=== PATIENT | female | born 1975 | race Caucasian/White ===

== ENCOUNTER 2016-04-11 11:59 | Emergency (ER) | payer OTHER ==
[2016-04-11] MEDS ORDERED: ASPIRIN 81 MG CHEW TABLET As Ordered ONE (12:12)
[2016-04-11 12:30] LABS: BASO # 0.1 K/mm3 (0.0-0.2); BASO % 0.9 % (0.0-1.0); EOS # 0.2 K/mm3 (0.0-0.50); EOS % 3.2 % (0.0-3.0); LARGE UNSTAINED CELL # 0.2 K/mm3 (0.0-0.4); LARGE UNSTAINED CELL % 3.3 % (0.0-4.0); LYMPH # 1.2 K/mm3 (1.5-4.5); LYMPH % 17.2 % (24.0-44.0); MEAN CORPUSCULAR HEMOGLOBIN 30.6 pg (27.0-33.0); MEAN CORPUSCULAR HGB CONC 33.4 g/dl (32.0-36.5); MEAN CORPUSCULAR VOLUME 91.7 fl (80.0-96.0); MONO # 0.3 K/mm3 (0.0-0.8); MONO % 5.1 % (0.0-5.0); NEUTROPHILS # 4.7 K/mm3 (1.8-7.7); NEUTROPHILS % 70.4 % (36.0-66.0); PLATELET COUNT, AUTOMATED 180 k/mm3 (150-450); RED CELL DISTRIBUTION WIDTH 14.2 % (11.5-14.5); WHITE BLOOD COUNT 6.7 K/mm3 (4.0-10.0)
--- NOTE | 2016-04-11 12:32 | REP ---
Chest two views HISTORY: Chest pain Comparison: 08/01/2014 The lungs are clear. The heart is normal in size. The pulmonary vasculature is normal in appearance. The bony structure is intact. IMPRESSION: No acute disease. Signed by Filipe Daugherty MD 04/11/2016 12:24 P
[2016-04-11 12:50] LABS: ANION GAP 9 MEQ/L (8-16); BLOOD UREA NITROGEN 4 MG/DL (7-18); CALCIUM LEVEL 9.5 MG/DL (8.5-10.1); CARBON DIOXIDE LEVEL 28 MEQ/L (21-32); CHLORIDE LEVEL 102 MEQ/L (98-107); CREATININE FOR GFR 0.79 MG/DL (0.55-1.02); GLOMERULAR FILTRATION RATE > 60.0 (>58); GLUCOSE, FASTING 94 MG/DL (70-105); POTASSIUM SERUM 4.3 MEQ/L (3.5-5.1); SODIUM LEVEL 139 MEQ/L (136-145)
--- NOTE | 2016-04-11 13:03 | ECGEPIP ---
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
[2016-04-11] MEDS ORDERED: ISOVUE-370 76% 100ML VIAL (Q9967) As Ordered ONE (14:22)
--- NOTE | 2016-04-11 15:24 | REP ---
CTA chest 04/11/2016 Indication: Elevated D-dimer, chest pain Comparison: CTA chest 05/19/2014 Technique: Following dynamic IV contrast administration 75 ml Isovue 370 mg/ml, 3 mm spiral axial sections were performed through the chest. Coronal and sagittal reconstructed images were also created and provided for interpretation Thoracic aorta is without aneurysm or dissection. There are no pathologically enlarged mediastinal or hilar nodes. There is homogeneous opacification of the pulmonary arteries without filling defects or findings to suggest pulmonary artery emboli. Tiny biapical bullous changes are noted . Small amount of bibasilar dependent atelectasis/fibrotic scarring . Focal narrowing and/or shadowing artifact is seen of the right common carotid artery at the thoracic inlet on image 29 series 403 and on image 26 series 401 There are no lytic or blastic lesions of bone identified within the bony thorax. Visualized portions of the liver, spleen, pancreas gallbladder, adrenals within normal limits Impression : 1. No evidence of pulmonary embolus 2. Thoracic aorta without aneurysm or dissection. 3. No pathologically enlarged mediastinal or hilar nodes 4. Tiny biapical bullous changes. Small amount of bibasilar dependent atelectasis/fibrotic scarring Signed by Marlene Berry MD 04/11/2016 03:16 P
--- NOTE | 2016-04-11 16:25 | EDDOCDS ---
Nurse's Notes [facility] Name: Ara Tellez Age: 41 yrs Sex: Female : 1975 Arrival Date: 04/11/2016 Time: 11:59 Bed 15 Private MD: Nate Oneil OGME-1 Diagnosis: Chest pain, unspecified-Low probablility cardiac or pulmonary embolism Presentation: 04/11 12:16 Presenting complaint: Patient states: Intermittent chest pain x1 week approximately. jo3 Aspirin was not taken prior to arrival. Adult Sepsis Screening: The patient does not have new or worsening altered mentation. Patient's respiratory rate is less than 22. Systolic blood pressure is greater than 100. Patient has a qSOFA score of 0- Negative Sepsis Screen. Suicide/Homicide risk assessment- the patient denies having any suicidal and/or homicidal ideations and does not present with any other emotional, behavioral or mental health complaints. Status: Patient is not a greeter guest services or dependent. Transition of care: patient was not received from another setting of care. 12:16 Acuity: BEHZAD Level 2 jo3 12:16 Method Of Arrival: Walkin/Carried/Asstd jo3 Triage Assessment: 12:20 General: Appears in no apparent distress, comfortable, Behavior is appropriate for age, jo3 cooperative, pleasant. Pain: Denies pain. HIV screening NA for this visit Offered previously. Neurological: Level of Consciousness is awake, alert, Oriented to person, place, time. Neurological: Mid Level Game Designer are equal bilaterally Moves all extremities. Gait is steady, Speech is normal, Facial symmetry appears normal, Pupils are PERRLA, Reports numbness/tingling in left arm . Cardiovascular: Chest pain is denied. Cardiovascular: Chest pain Pt states that she has very brief episodes of sharp chest pain to left right and mid anterior chest. Pain is sometimes felt in her right scapular area but is never constant . Respiratory: Airway is patent Respiratory effort is even, unlabored. Derm: Skin is pink, warm & dry. 16:23 Cardiovascular: Chest pain is described as vague, is located in radiates Does not jmb radiate. episodes began 30 minutes prior to arrival. 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 omeprazole 40 mg Oral cpDR 1 cap once daily 2. Flonase 50 mcg/actuation Nasal spsn 2 sprays once daily 3. amlodipine 5 mg Oral tab 1 tab once daily - PMHx: GERD; Hypertension; - PSHx: none; - Social history: Smoking status: Patient uses tobacco products, heavy tobacco smoker. No barriers to communication noted, The patient speaks fluent Faroese, Speaks appropriately for age. - Family history: Not pertinent. - : The pt / caregiver states he / she is not on anticoagulants. Home medication list is obtained from the patient. - Exposure Risk Screening:: None identified. Screenin:21 Screening information is obtained from the patient. Fall risk: No risks identified. jmb Assistance ADL's: requires no assistance with activities of daily living. Abuse/DV Screen: The patient / caregiver reports he/she is: not in a situation that causes fear, pain or injury. Nutritional screening: No deficits noted. Advance Directives: Currently, there is no health care proxy. There is no active DNR order. There is no living will. There is no Power of Metal Cut Off Saw Tender. home support is adequate. Assessment: 12:25 Reassessment: Patient appears in no apparent distress at this time. See triage jo3 assessment . 13:00 General: Appears in no apparent distress, comfortable, Behavior is appropriate for age, jo3 cooperative, pleasant. Pain: Denies pain. Neurological: Level of Consciousness is awake, alert, Oriented to person, place, time, Reports numbness and tingling to left arm and hand . Cardiovascular: Rhythm is sinus rhythm No ectopy. Respiratory: Airway is patent Respiratory effort is even, unlabored. Derm: Skin is pink, warm & dry. 13:54 Reassessment: Patient appears in no apparent distress at this time. No changes noted jo3 from previous assessment status. Pt remains on stretcher at this time. Denies CP. Awaiting results. Aware of plan of care . 14:55 General: Appears in no apparent distress, comfortable, Behavior is appropriate for age, jo3 cooperative, pleasant. General: Returned from CT angio. Tolerated well. awaiting results for disposition. Aware of plan of care . Pain: Denies pain. 16:21 General: Patient instructed on discharge instructions. Patient asked if there were any b questions regarding discharge, patient stated no. IV discontinued per hospital policy. Patient signed discharge instructions. Patient discharged in stable condition. . Vital Signs: 12:00 BP 154 / 74; Pulse 122; Resp 18 S; Temp 97.4(O); Pulse Ox 100% on R/A; Weight 72.57 kg dd6 (R); Height 5 ft. 5 in. (165.10 cm) (R); 12:31 BP 145 / 89 (auto/); jo3 12:31 Pulse 78 MON; Pulse Ox 99% ; jo3 12:39 BP 135 / 71 (auto/); jo3 12:39 Pulse 74 MON; Pulse Ox 97% ; jo3 12:54 BP 133 / 68 (auto/); jo3 12:54 Pulse 70 MON; Pulse Ox 97% ; jo3 13:09 BP 136 / 72 (auto/); jo3 13:09 Pulse 70 MON; Pulse Ox 99% ; jo3 13:24 BP 132 / 71 (auto/); jo3 13:24 Pulse 66 MON; Pulse Ox 97% ; jo3 13:39 BP 123 / 66 (auto/); jo3 13:39 Pulse 66 MON; Pulse Ox 98% ; jo3 13:54 BP 127 / 62 (auto/); jo3 13:54 Pulse 68 MON; Pulse Ox 98% ; jo3 14:09 BP 119 / 60 (auto/); jo3 14:09 Pulse 68 MON; Pulse Ox 97% ; jo3 14:24 BP 141 / 92 (auto/); jo3 14:24 Pulse 66 MON; Pulse Ox 97% ; jo3 14:39 BP 148 / 84 (auto/); jo3 14:39 Pulse 90 MON; Pulse Ox 94% ; jo3 14:54 BP 136 / 62 (auto/); jmb 14:55 Pulse 64 MON; Pulse Ox 98% ; jmb 16:21 BP 139 / 62; Pulse 76; Resp 18; Temp 97.0(O); Pulse Ox 98% on R/A; Pain 0/10; jmb 12:00 Body Mass Index 26.63 (72.57 kg, 165.10 cm) dd6 Vitals: 12:00 Log In Time: April 11, 2016 at 11:58. RN notified that patient meets Red Flag dd6 criteria. ED Course: 12:00 Patient visited by Jj Acuña PCA. dd6 12:[address] [facility] [place]. dd6 12:00 Nate Oneil is Private Physician. dd6 12:00 Patient moved to Waiting dd6 12:02 Patient moved to 15 dy 12:09 [facility] le 12:11 EKG done. (by ED staff). Reviewed by Khushi TORRES. jlf 12:12 Pt greeted and oriented to ED. Patient advised of names of staff involved in care, jlf location of call nicole, wait times and NPO status. Patient has correct armband on for positive identification. Bed in low position. Side rails up X2. associate product manager on. Pulse ox on. NIBP on. 12:18 Patient visited by Khushi Pete FNP. le 12:18 Patient visited by Khushi Pete FNP. le 12:18 Triage Initiated jo3 12:51 COUNT INCLUDES THE [facility] Payment Agreement was scanned into [employer] and attached to record. lg 12:55 Patient visited by Christy Mays PCA. jlf 12:59 Chest, 2 View (pa\E\lat) Returned. EDMS 13:43 EKG-ADULT Returned. EDMS 13:59 Patient visited by Christy Mays PCA. jlf 13:59 Patient visited by Christelle Garcia,PHYLLIS. jo3 14:51 Patient visited by Christelle Garcia,PHYLLIS. jo3 15:23 Patient visited by Christelle Garcia,PHYLLIS. jo3 15:29 CT Chest Angio R/O PE Returned. EDMS 16:05 Nate Oneil is Referral Physician. le 16:21 The patient / caregiver is instructed regarding the plan of care and ED course. jmb 16:21 Discontinued lock intact, bleeding controlled, pressure dressing applied, No jmb redness/swelling at site. No procedures done that require assistance. Administered Medications: 12:13 Drug: Aspirin 324 mg [aspirin 81 mg chewable tablet (4 tabs)] Route: PO; js13 Order Results: Lab Order: Basic Metabolic Profile; SPEC'M 04/11/16 12:15 Test: GLUCOSE, FASTING; Value: 94; Range: 70-105; Units: MG/DL; Status: F Test: BLOOD UREA NITROGEN; Value: 4; Range: 7-18; Abnormal: Below low normal; Units: MG/DL; Status: F Test: CREATININE FOR GFR; Value: 0.79; Range: 0.55-1.02; Units: MG/DL; Status: F Test: GLOMERULAR FILTRATION RATE; Value: > 60.0; Range: >58; Status: F Test: SODIUM LEVEL; Value: 139; Range: 136-145; Units: MEQ/L; Status: F Test: POTASSIUM SERUM; Value: 4.3; Range: 3.5-5.1; Units: MEQ/L; Status: F Test: CHLORIDE LEVEL; Value: 102; Range: 98-107; Units: MEQ/L; Status: F Test: CARBON DIOXIDE LEVEL; Value: 28; Range: 21-32; Units: MEQ/L; Status: F Test: ANION GAP; Value: 9; Range: 8-16; Units: MEQ/L; Status: F Test: CALCIUM LEVEL; Value: 9.5; Range: 8.5-10.1; Units: MG/DL; Status: F Test Note: ; Units are mL/min/1.73 m2 Chronic Kidney Disease Staging per NKF: Stage I & II GFR >=60 Normal to Mildly Decreased Stage III GFR 30-59 Moderately Decreased Stage IV GFR 15-29 Severely Decreased Stage V GFR <15 Very Little GFR Left ESRD GFR <15 on MANAGER BUSINESS MANAGEMENT Lab Order: CBC with Diff; SPEC'M 04/11/16 12:15 Test: WHITE BLOOD COUNT; Value: 6.7; Range: 4.0-10.0; Units: K/mm3; Status: F Test: RED BLOOD COUNT; Value: 4.67; Range: 4.00-5.40; Units: M/mm3; Status: F Test: HEMOGLOBIN; Value: 14.3; Range: 12.0-16.0; Units: g/dl; Status: F Test: HEMATOCRIT; Value: 42.8; Range: 36.0-47.0; Units: %; Status: F Test: MEAN CORPUSCULAR VOLUME; Value: 91.7; Range: 80.0-96.0; Units: fl; Status: F Test: MEAN CORPUSCULAR HEMOGLOBIN; Value: 30.6; Range: 27.0-33.0; Units: pg; Status: F Test: MEAN CORPUSCULAR HGB CONC; Value: 33.4; Range: 32.0-36.5; Units: g/dl; Status: F Test: RED CELL DISTRIBUTION WIDTH; Value: 14.2; Range: 11.5-14.5; Units: %; Status: F Test: PLATELET COUNT, AUTOMATED; Value: 180; Range: 150-450; Units: k/mm3; Status: F Test: NEUTROPHILS %; Value: 70.4; Range: 36.0-66.0; Abnormal: Above high normal; Units: %; Status: F Test: LYMPH %; Value: 17.2; Range: 24.0-44.0; Abnormal: Below low normal; Units: %; Status: F Test: MONO %; Value: 5.1; Range: 0.0-5.0; Abnormal: Above high normal; Units: %; Status: F Test: EOS %; Value: 3.2; Range: 0.0-3.0; Abnormal: Above high normal; Units: %; Status: F Test: BASO %; Value: 0.9; Range: 0.0-1.0; Units: %; Status: F Test: LARGE UNSTAINED CELL %; Value: 3.3; Range: 0.0-4.0; Units: %; Status: F Test: NEUTROPHILS #; Value: 4.7; Range: 1.8-7.7; Units: K/mm3; Status: F Test: LYMPH #; Value: 1.2; Range: 1.5-4.5; Abnormal: Below low normal; Units: K/mm3; Status: F Test: MONO #; Value: 0.3; Range: 0.0-0.8; Units: K/mm3; Status: F Test: EOS #; Value: 0.2; Range: 0.0-0.50; Units: K/mm3; Status: F Test: BASO #; Value: 0.1; Range: 0.0-0.2; Units: K/mm3; Status: F Test: LARGE UNSTAINED CELL #; Value: 0.2; Range: 0.0-0.4; Units: K/mm3; Status: F Lab Order: Cardiac Injury Profile; SPEC'M 04/11/16 12:15 Test: CPK CREATINE PHOSPHOKINASE; Value: 67; Range: 26-192; Units: U/L; Status: F Test: CK-MB VALUE MASS; Value: 1.0; Range: 0.0-3.6; Units: NG/ML; Status: F Test: MB/CK RELATIVE INDEX; Value: 1.49; Range: < OR =4; Status: F Test Note: ; DIAGNOSIS CRITERIA MMB ng/ml Relative Index (RI) NON-AMI < or = 5 N/A REYNOLDS ZONE > 5 < or = 4 AMI > 5 > 4 Lab Order: D-Dimer Quant; SPEC'M 04/11/16 12:15 Test: D-DIMER QUANT; Value: 902.0; Range: <500; Abnormal: Above high normal; Units: ng/ml; Status: F Lab Order: Troponin; SPEC'M 04/11/16 12:15 Test: TROPONIN I; Value: < 0.02; Range: < 0.10; Units: NG/ML; Status: F Test Note: ; Troponin I Reference Interval for [employer] LOCI: 99th Percentile= 0.00-0.045 ng/ml Risk Stratification: <= 0.10 ng/ml Decreased Risk for Adverse Clinical Events. 0.10-1.50 ng/ml Increased Risk for Adverse Clinical Events. Evaluation of additional criterion and/or repeat testing in 2-6 hours is suggested to rule out myocardial damage. >= 1.50 ng/ml Indicative of Myocardial Injury. 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 The heart is normal in size. The pulmonary vasculature is; normal in appearance. The bony structure is intact.; ; IMPRESSION: No acute disease.; ; ; Signed by; Filipe Daugherty MD 04/11/2016 12:24 P; Radiology Order: CT Chest Angio R/O PE Test: CT Chest Angio R/O PE REASON FOR EXAMINATION: elev d-dimer;Chest Pain; CTA chest 04/11/2016; ; Indication: Elevated D-dimer, chest pain; ; Comparison: CTA chest 05/19/2014; ; Technique: Following dynamic IV contrast administration 75 ml Isovue 370 mg/ml, 3; mm spiral axial sections were performed through the chest. Coronal and sagittal; reconstructed images were also created and provided for interpretation; ; Thoracic aorta is without aneurysm or dissection. There are no pathologically; enlarged mediastinal or hilar nodes. There is homogeneous opacification of the; pulmonary arteries without filling defects or findings to suggest pulmonary; artery emboli.; ; Tiny biapical bullous changes are noted . Small amount of bibasilar dependent; atelectasis/fibrotic scarring . Focal narrowing and/or shadowing artifact is seen; of the right common carotid artery at the thoracic inlet on image 29 series 403; and on image 26 series 401; ; There are no lytic or blastic lesions of bone identified within the bony thorax.; Visualized portions of the liver, spleen, pancreas gallbladder, adrenals within; normal limits; ; Impression :; 1. No evidence of pulmonary embolus; 2. Thoracic aorta without aneurysm or dissection.; 3. No pathologically enlarged mediastinal or hilar nodes; 4. Tiny biapical bullous changes. Small amount of bibasilar dependent; atelectasis/fibrotic scarring; ; ; ; ; ; ; ; Signed by; Marlene Berry MD 04/11/2016 03:16 P; Outcome: 16:05 Discharge ordered by Provider. le 16:21 Discharge Assessment: Patient awake, alert and oriented x 3. No cognitive and/or jmb functional deficits noted. Patient verbalized understanding of disposition instructions. Patient awake and alert. obeys commands, Oriented to person, place and time. Patient verbalized understanding of disposition instructions. Patient has no functional deficits. patient administered narcotics - no. The following High Risk Discharge criteria are identified: None. Discharged to home ambulatory. Condition: stable. Discharge instructions given to patient, Instructed on discharge instructions, follow up and referral plans. Demonstrated understanding of instructions, Pt was receptive of discharge instructions/ teaching. No special radiology studies were completed. Property sent home with patient. 16:24 Patient left the ED. phylicia Signatures: Dispatcher [employer] EDMS Ronnell Dale, Reg Reg lg Declan Hawthorne, RN RN Christelle Mack,RN RN alina3 Khushi Pete, PLAYGROUND WORKER PLAYGROUND WORKER Jj Lima, RESIDENT SERVICE COORDINATOR RESIDENT SERVICE COORDINATOR dd6 Christelle Harris,RN RN jsChris BradleyRN RN Christy Coronado, RESIDENT SERVICE COORDINATOR RESIDENT SERVICE COORDINATOR jlf Corrections: (The following items were deleted from the chart) 12:26 12:20 Home Meds: unk BP med; jo3 joDianna MTDD
--- NOTE | 2016-04-11 16:25 | EDDOCDS ---
Physician Documentation [facility] Name: Monae Tellez Age: 41 yrs Sex: Female : 1975 Arrival Date: 04/11/2016 Time: 11:59 Bed 15 Private MD: Nate Oneil OGME-1 Disposition: 04/11 16:08 Critical Care: Critical care not applicable. le Disposition: 04/11/16 16:05 Discharged to Home/Self Care. Impression: Chest pain, unspecified - Low probablility cardiac or pulmonary embolism. - Condition is Stable. - Discharge Instructions: Nonspecific Chest Pain, Pain Without a Known Cause. - Medication Reconciliation, Local Pharmacy Hours form. - Follow up: Nate Oneil; When: Call to arrange an appointment; Reason: Recheck today's complaints, Continuance of care. - Problem is new. - Symptoms have improved. - Notes: Return to the ED for any further concerns Historical: - Allergies: no known allergies; - Home Meds: 1. omeprazole 40 mg Oral cpDR 1 cap once daily 2. Flonase 50 mcg/actuation Nasal spsn 2 sprays once daily 3. amlodipine 5 mg Oral tab 1 tab once daily - PMHx: GERD; Hypertension; - PSHx: none; - Social history: Smoking status: Patient uses tobacco products, heavy tobacco smoker. No barriers to communication noted, The patient speaks fluent Yak[place], Speaks appropriately for age. - Family history: Not pertinent. - : The pt / caregiver states he / she is not on anticoagulants. Home medication list is obtained from the patient. - Exposure Risk Screening:: None identified. 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 5 in. (165.10 cm) (R); 12:31 BP 145 / 89 (auto/); jo3 12:31 Pulse 78 MON; Pulse Ox 99% ; jo3 12:39 BP 135 / 71 (auto/); jo3 12:39 Pulse 74 MON; Pulse Ox 97% ; jo3 12:54 BP 133 / 68 (auto/); jo3 12:54 Pulse 70 MON; Pulse Ox 97% ; jo3 13:09 BP 136 / 72 (auto/); jo3 13:09 Pulse 70 MON; Pulse Ox 99% ; jo3 13:24 BP 132 / 71 (auto/); jo3 13:24 Pulse 66 MON; Pulse Ox 97% ; jo3 13:39 BP 123 / 66 (auto/); jo3 13:39 Pulse 66 MON; Pulse Ox 98% ; jo3 13:54 BP 127 / 62 (auto/); jo3 13:54 Pulse 68 MON; Pulse Ox 98% ; jo3 14:09 BP 119 / 60 (auto/); jo3 14:09 Pulse 68 MON; Pulse Ox 97% ; jo3 14:24 BP 141 / 92 (auto/); jo3 14:24 Pulse 66 MON; Pulse Ox 97% ; jo3 14:39 BP 148 / 84 (auto/); jo3 14:39 Pulse 90 MON; Pulse Ox 94% ; jo3 14:54 BP 136 / 62 (auto/); jmb 14:55 Pulse 64 MON; Pulse Ox 98% ; jmb 16:21 BP 139 / 62; Pulse 76; Resp 18; Temp 97.0(O); Pulse Ox 98% on R/A; Pain 0/10; jmb 12:00 Body Mass Index 26.63 (72.57 kg, 165.10 cm) dd6 MDM: 12:03 ECG WITH READING ER PHYS+CARDIAG ordered. EDMS 12:10 Aspirin Chewable Tablet 324 mg PO once ordered. le 12:10 Director Of Instruction/Pulse Ox/q 30 min VS ordered. le 12:10 IV Saline Lock ordered. le 12:10 Rhythm Strip to chart ordered. le 12:10 Undress patient appropriately for examination ordered. le 12:11 Basic Metabolic Profile Ordered. EDMS 12:11 CBC with Diff Ordered. EDMS 12:11 Cardiac Injury Profile Ordered. EDMS 12:11 D-Dimer Quant Ordered. EDMS 12:11 Troponin Ordered. EDMS 12:11 Chest, 2 View (pa\E\lat) Ordered. EDMS 12:34 CBC with Diff Reviewed. le 12:35 Spine, Cervical Ordered. EDMS 12:51 Financial registration complete. lg 12:51 [facility] [place] Payment Agreement was scanned into [employer] and attached to record. lg 14:17 Basic Metabolic Profile Reviewed. le 14:17 D-Dimer Quant Reviewed. le 14:17 Cardiac Injury Profile Reviewed. le 14:17 Troponin Reviewed. le 14:17 EKG-ADULT Reviewed. le 14:17 Chest, 2 View (pa\E\lat) Reviewed. le 14:19 CT Chest Angio R/O PE Ordered. EDMS 14:21 Import Vital Signs into [employer] q30min please ordered. le 16:03 CT Chest Angio R/O PE Reviewed. le Administered Medications: 12:13 Drug: Aspirin 324 mg [aspirin 81 mg chewable tablet (4 tabs)] Route: PO; js13 Signatures: Dispatcher [employer] EDMS Ronnell Dale, Christelle Stephen lg,RN RN jo3 Khushi Pete, NET APPLICATIONS DEVELOPER NET APPLICATIONS DEVELOPER Chris FatimaRN RN Christelle Sumner RN js13 The chart was reviewed and I authenticate all verbal orders and agree with the evaluation and treatment provided.Corrections: (The following items were deleted from the chart) 12:26 12:20 Home Meds: unk BP med; jo3 jo3 Attachments: 12:51 [facility] [place] Payment Agreement lg MTDD
--- NOTE | 2016-04-11 20:28 | REP ---
Cervical spine series 04/11/2016, seven view exam Indication: Radicular symptoms Comparison: None Findings: There is reversal of cervical lordosis. There is no acute fracture or prevertebral soft tissue swelling . There is some mild limited range of motion with cervical flexion. Anterior marginal osteophytes are noted at C4-5, C5-6 with mild disc space narrowing at these levels. There is moderate to advanced foraminal narrowing on the right at C5-6 , and mild foraminal narrowing on the right at C6-7. There is no left foraminal narrowing Impression 1. Reversal of cervical lordosis. 2. Mild degenerative disc changes C4-5, C5-6 3. Moderate to advanced foraminal narrowing on the right and C5-6, mild foraminal narrowing on the right at C6-7. No left foraminal narrowing. Signed by Marlene Berry MD 04/11/2016 08:19 P
--- NOTE | 2016-04-13 17:24 | EDDOCDS ---
Nurse's Notes [facility] Name: Ara Clark Age: 41 yrs Sex: Female : 1975 Arrival Date: 04/11/2016 Time: 11:59 Bed 15 Private MD: Nate Oneil OGME-1 Diagnosis: Chest pain, unspecified-Low probablility cardiac or pulmonary embolism Presentation: 04/11 12:16 Presenting complaint: Patient states: Intermittent chest pain x1 week approximately. jo3 Aspirin was not taken prior to arrival. Adult Sepsis Screening: The patient does not have new or worsening altered mentation. Patient's respiratory rate is less than 22. Systolic blood pressure is greater than 100. Patient has a qSOFA score of 0- Negative Sepsis Screen. Suicide/Homicide risk assessment- the patient denies having any suicidal and/or homicidal ideations and does not present with any other emotional, behavioral or mental health complaints. Status: Patient is not a service counselor or dependent. Transition of care: patient was not received from another setting of care. 12:16 Acuity: BEHZAD Level 2 jo3 12:16 Method Of Arrival: Walkin/Carried/Asstd jo3 Triage Assessment: 12:20 General: Appears in no apparent distress, comfortable, Behavior is appropriate for age, jo3 cooperative, pleasant. Pain: Denies pain. HIV screening NA for this visit Offered previously. Neurological: Level of Consciousness is awake, alert, Oriented to person, place, time. Neurological: [employer] are equal bilaterally Moves all extremities. Gait is steady, Speech is normal, Facial symmetry appears normal, Pupils are PERRLA, Reports numbness/tingling in left arm . Cardiovascular: Chest pain is denied. Cardiovascular: Chest pain Pt states that she has very brief episodes of sharp chest pain to left right and mid anterior chest. Pain is sometimes felt in her right scapular area but is never constant . Respiratory: Airway is patent Respiratory effort is even, unlabored. Derm: Skin is pink, warm & dry. 16:23 Cardiovascular: Chest pain is described as vague, is located in radiates Does not jmb radiate. episodes began 30 minutes prior to arrival. 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 omeprazole 40 mg Oral cpDR 1 cap once daily 2. Flonase 50 mcg/actuation Nasal spsn 2 sprays once daily 3. amlodipine 5 mg Oral tab 1 tab once daily - PMHx: GERD; Hypertension; - PSHx: none; - Social history: Smoking status: Patient uses tobacco products, heavy tobacco smoker. No barriers to communication noted, The patient speaks fluent Swiss, Speaks appropriately for age. - Family history: Not pertinent. - : The pt / caregiver states he / she is not on anticoagulants. Home medication list is obtained from the patient. - Exposure Risk Screening:: None identified. Screenin:21 Screening information is obtained from the patient. Fall risk: No risks identified. jmb Assistance ADL's: requires no assistance with activities of daily living. Abuse/DV Screen: The patient / caregiver reports he/she is: not in a situation that causes fear, pain or injury. Nutritional screening: No deficits noted. Advance Directives: Currently, there is no health care proxy. There is no active DNR order. There is no living will. There is no Power of Pastry Assistant. home support is adequate. Assessment: 12:25 Reassessment: Patient appears in no apparent distress at this time. See triage jo3 assessment . 13:00 General: Appears in no apparent distress, comfortable, Behavior is appropriate for age, jo3 cooperative, pleasant. Pain: Denies pain. Neurological: Level of Consciousness is awake, alert, Oriented to person, place, time, Reports numbness and tingling to left arm and hand . Cardiovascular: Rhythm is sinus rhythm No ectopy. Respiratory: Airway is patent Respiratory effort is even, unlabored. Derm: Skin is pink, warm & dry. 13:54 Reassessment: Patient appears in no apparent distress at this time. No changes noted jo3 from previous assessment status. Pt remains on stretcher at this time. Denies CP. Awaiting results. Aware of plan of care . 14:55 General: Appears in no apparent distress, comfortable, Behavior is appropriate for age, jo3 cooperative, pleasant. General: Returned from CT angio. Tolerated well. awaiting results for disposition. Aware of plan of care . Pain: Denies pain. 16:21 General: Patient instructed on discharge instructions. Patient asked if there were any b questions regarding discharge, patient stated no. IV discontinued per hospital policy. Patient signed discharge instructions. Patient discharged in stable condition. . Vital Signs: 12:00 BP 154 / 74; Pulse 122; Resp 18 S; Temp 97.4(O); Pulse Ox 100% on R/A; Weight 72.57 kg dd6 (R); Height 5 ft. 5 in. (165.10 cm) (R); 12:31 BP 145 / 89 (auto/); jo3 12:31 Pulse 78 MON; Pulse Ox 99% ; jo3 12:39 BP 135 / 71 (auto/); jo3 12:39 Pulse 74 MON; Pulse Ox 97% ; jo3 12:54 BP 133 / 68 (auto/); jo3 12:54 Pulse 70 MON; Pulse Ox 97% ; jo3 13:09 BP 136 / 72 (auto/); jo3 13:09 Pulse 70 MON; Pulse Ox 99% ; jo3 13:24 BP 132 / 71 (auto/); jo3 13:24 Pulse 66 MON; Pulse Ox 97% ; jo3 13:39 BP 123 / 66 (auto/); jo3 13:39 Pulse 66 MON; Pulse Ox 98% ; jo3 13:54 BP 127 / 62 (auto/); jo3 13:54 Pulse 68 MON; Pulse Ox 98% ; jo3 14:09 BP 119 / 60 (auto/); jo3 14:09 Pulse 68 MON; Pulse Ox 97% ; jo3 14:24 BP 141 / 92 (auto/); jo3 14:24 Pulse 66 MON; Pulse Ox 97% ; jo3 14:39 BP 148 / 84 (auto/); jo3 14:39 Pulse 90 MON; Pulse Ox 94% ; jo3 14:54 BP 136 / 62 (auto/); jmb 14:55 Pulse 64 MON; Pulse Ox 98% ; jmb 16:21 BP 139 / 62; Pulse 76; Resp 18; Temp 97.0(O); Pulse Ox 98% on R/A; Pain 0/10; jmb 12:00 Body Mass Index 26.63 (72.57 kg, 165.10 cm) dd6 Vitals: 12:00 Log In Time: April 11, 2016 at 11:58. RN notified that patient meets Red Flag dd6 criteria. ED Course: 12:00 Patient visited by Jj Acuña PCA. dd6 12:00 [facility] is Private Physician. dd6 12:00 Nate Oneil is Private Physician. dd6 12:00 Patient moved to Waiting dd6 12:02 Patient moved to 15 dy 12:09 [facility] le 12:11 EKG done. (by ED staff). Reviewed by Khushi TORRES. jlf 12:12 Pt greeted and oriented to ED. Patient advised of names of staff involved in care, jlf location of call nicole, wait times and NPO status. Patient has correct armband on for positive identification. Bed in low position. Side rails up X2. compliance monitor on. Pulse ox on. NIBP on. 12:18 Patient visited by Khushi Pete FNP. le 12:18 Patient visited by Khushi Pete FNP. le 12:18 Triage Initiated jo3 12:51 [facility] Payment Agreement was scanned into Sendmail and attached to record. lg 12:55 Patient visited by Christy Mays PCA. jlf 12:59 Chest, 2 View (pa\E\lat) Returned. EDMS 13:43 EKG-ADULT Returned. EDMS 13:59 Patient visited by Christy Mays PCA. jlf 13:59 Patient visited by Christelle Garcia,PHYLLIS. jo3 14:51 Patient visited by Christelle Garcia,PHYLLIS. jo3 15:23 Patient visited by Christelle Garcia,PHYLLIS. jo3 15:29 CT Chest Angio R/O PE Returned. EDMS 16:05 Nate Oneil is Referral Physician. le 16:21 The patient / caregiver is instructed regarding the plan of care and ED course. jmb 16:21 Discontinued lock intact, bleeding controlled, pressure dressing applied, No jmb redness/swelling at site. No procedures done that require assistance. 21:02 Spine, Cervical Returned. EDMS 04/12 08:44 T-Sheet-- Draft Copy was scanned into Sendmail and attached to record. se 12:07 ECG/EKG was scanned into Sendmail and attached to record. gb Administered Medications: 04/11 12:13 Drug: Aspirin 324 mg [aspirin 81 mg chewable tablet (4 tabs)] Route: PO; js13 Order Results: Lab Order: Basic Metabolic Profile; SPEC'M 04/11/16 12:15 Test: GLUCOSE, FASTING; Value: 94; Range: 70-105; Units: MG/DL; Status: F Test: BLOOD UREA NITROGEN; Value: 4; Range: 7-18; Abnormal: Below low normal; Units: MG/DL; Status: F Test: CREATININE FOR GFR; Value: 0.79; Range: 0.55-1.02; Units: MG/DL; Status: F Test: GLOMERULAR FILTRATION RATE; Value: > 60.0; Range: >58; Status: F Test: SODIUM LEVEL; Value: 139; Range: 136-145; Units: MEQ/L; Status: F Test: POTASSIUM SERUM; Value: 4.3; Range: 3.5-5.1; Units: MEQ/L; Status: F Test: CHLORIDE LEVEL; Value: 102; Range: 98-107; Units: MEQ/L; Status: F Test: CARBON DIOXIDE LEVEL; Value: 28; Range: 21-32; Units: MEQ/L; Status: F Test: ANION GAP; Value: 9; Range: 8-16; Units: MEQ/L; Status: F Test: CALCIUM LEVEL; Value: 9.5; Range: 8.5-10.1; Units: MG/DL; Status: F Test Note: ; Units are mL/min/1.73 m2 Chronic Kidney Disease Staging per NKF: Stage I & II GFR >=60 Normal to Mildly Decreased Stage III GFR 30-59 Moderately Decreased Stage IV GFR 15-29 Severely Decreased Stage V GFR <15 Very Little GFR Left ESRD GFR <15 on 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 Lab Order: CBC with Diff; SPEC'M 04/11/16 12:15 Test: WHITE BLOOD COUNT; Value: 6.7; Range: 4.0-10.0; Units: K/mm3; Status: F Test: RED BLOOD COUNT; Value: 4.67; Range: 4.00-5.40; Units: M/mm3; Status: F Test: HEMOGLOBIN; Value: 14.3; Range: 12.0-16.0; Units: g/dl; Status: F Test: HEMATOCRIT; Value: 42.8; Range: 36.0-47.0; Units: %; Status: F Test: MEAN CORPUSCULAR VOLUME; Value: 91.7; Range: 80.0-96.0; Units: fl; Status: F Test: MEAN CORPUSCULAR HEMOGLOBIN; Value: 30.6; Range: 27.0-33.0; Units: pg; Status: F Test: MEAN CORPUSCULAR HGB CONC; Value: 33.4; Range: 32.0-36.5; Units: g/dl; Status: F Test: RED CELL DISTRIBUTION WIDTH; Value: 14.2; Range: 11.5-14.5; Units: %; Status: F Test: PLATELET COUNT, AUTOMATED; Value: 180; Range: 150-450; Units: k/mm3; Status: F Test: NEUTROPHILS %; Value: 70.4; Range: 36.0-66.0; Abnormal: Above high normal; Units: %; Status: F Test: LYMPH %; Value: 17.2; Range: 24.0-44.0; Abnormal: Below low normal; Units: %; Status: F Test: MONO %; Value: 5.1; Range: 0.0-5.0; Abnormal: Above high normal; Units: %; Status: F Test: EOS %; Value: 3.2; Range: 0.0-3.0; Abnormal: Above high normal; Units: %; Status: F Test: BASO %; Value: 0.9; Range: 0.0-1.0; Units: %; Status: F Test: LARGE UNSTAINED CELL %; Value: 3.3; Range: 0.0-4.0; Units: %; Status: F Test: NEUTROPHILS #; Value: 4.7; Range: 1.8-7.7; Units: K/mm3; Status: F Test: LYMPH #; Value: 1.2; Range: 1.5-4.5; Abnormal: Below low normal; Units: K/mm3; Status: F Test: MONO #; Value: 0.3; Range: 0.0-0.8; Units: K/mm3; Status: F Test: EOS #; Value: 0.2; Range: 0.0-0.50; Units: K/mm3; Status: F Test: BASO #; Value: 0.1; Range: 0.0-0.2; Units: K/mm3; Status: F Test: LARGE UNSTAINED CELL #; Value: 0.2; Range: 0.0-0.4; Units: K/mm3; Status: F Lab Order: Cardiac Injury Profile; SPEC' 04/11/16 12:15 Test: CPK CREATINE PHOSPHOKINASE; Value: 67; Range: 26-192; Units: U/L; Status: F Test: CK-MB VALUE MASS; Value: 1.0; Range: 0.0-3.6; Units: NG/ML; Status: F Test: MB/CK RELATIVE INDEX; Value: 1.49; Range: < OR =4; Status: F Test Note: ; DIAGNOSIS CRITERIA MMB ng/ml Relative Index (RI) NON-AMI < or = 5 N/A REYNOLDS ZONE > 5 < or = 4 AMI > 5 > 4 Lab Order: D-Dimer Quant; SPEC' 04/11/16 12:15 Test: D-DIMER QUANT; Value: 902.0; Range: <500; Abnormal: Above high normal; Units: ng/ml; Status: F Lab Order: Troponin; SPEC' 04/11/16 12:15 Test: TROPONIN I; Value: < 0.02; Range: < 0.10; Units: NG/ML; Status: F Test Note: ; Troponin I Reference Interval for Daio LOCI: 99th Percentile= 0.00-0.045 ng/ml Risk Stratification: <= 0.10 ng/ml Decreased Risk for Adverse Clinical Events. 0.10-1.50 ng/ml Increased Risk for Adverse Clinical Events. Evaluation of additional criterion and/or repeat testing in 2-6 hours is suggested to rule out myocardial damage. >= 1.50 ng/ml Indicative of Myocardial Injury. 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 The heart is normal in size. The pulmonary vasculature is; normal in appearance. The bony structure is intact.; ; IMPRESSION: No acute disease.; ; ; Signed by; Filipe Daugherty MD 04/11/2016 12:24 P; Radiology Order: Spine, Cervical Test: Spine, Cervical REASON FOR EXAMINATION: ? radicular symptoms; Cervical spine series 04/11/2016, seven view exam; ; Indication: Radicular symptoms; ; Comparison: None; ; Findings: There is reversal of cervical lordosis. There is no acute fracture or; prevertebral soft tissue swelling . There is some mild limited range of motion; with cervical flexion.; ; Anterior marginal osteophytes are noted at C4-5, C5-6 with mild disc space; narrowing at these levels. There is moderate to advanced foraminal narrowing on; the right at C5-6 , and mild foraminal narrowing on the right at C6-7. There is; no left foraminal narrowing; ; Impression; 1. Reversal of cervical lordosis.; 2. Mild degenerative disc changes C4-5, C5-6; 3. Moderate to advanced foraminal narrowing on the right and C5-6, mild; foraminal narrowing on the right at C6-7. No left foraminal narrowing.; ; ; ; ; ; ; Signed by; Marlene Berry MD 04/11/2016 08:19 P; Radiology Order: CT Chest Angio R/O PE Test: CT Chest Angio R/O PE REASON FOR EXAMINATION: elev d-dimer;Chest Pain; CTA chest 04/11/2016; ; Indication: Elevated D-dimer, chest pain; ; Comparison: CTA chest 05/19/2014; ; Technique: Following dynamic IV contrast administration 75 ml Isovue 370 mg/ml, 3; mm spiral axial sections were performed through the chest. Coronal and sagittal; reconstructed images were also created and provided for interpretation; ; Thoracic aorta is without aneurysm or dissection. There are no pathologically; enlarged mediastinal or hilar nodes. There is homogeneous opacification of the; pulmonary arteries without filling defects or findings to suggest pulmonary; artery emboli.; ; Tiny biapical bullous changes are noted . Small amount of bibasilar dependent; atelectasis/fibrotic scarring . Focal narrowing and/or shadowing artifact is seen; of the right common carotid artery at the thoracic inlet on image 29 series 403; and on image 26 series 401; ; There are no lytic or blastic lesions of bone identified within the bony thorax.; Visualized portions of the liver, spleen, pancreas gallbladder, adrenals within; normal limits; ; Impression :; 1. No evidence of pulmonary embolus; 2. Thoracic aorta without aneurysm or dissection.; 3. No pathologically enlarged mediastinal or hilar nodes; 4. Tiny biapical bullous changes. Small amount of bibasilar dependent; atelectasis/fibrotic scarring; ; ; ; ; ; ; ; Signed by; Marlene Berry MD 04/11/2016 03:16 P; Outcome: 16:05 Discharge ordered by Provider. le 16:21 Discharge Assessment: Patient awake, alert and oriented x 3. No cognitive and/or jmb functional deficits noted. Patient verbalized understanding of disposition instructions. Patient awake and alert. obeys commands, Oriented to person, place and time. Patient verbalized understanding of disposition instructions. Patient has no functional deficits. patient administered narcotics - no. The following High Risk Discharge criteria are identified: None. Discharged to home ambulatory. Condition: stable. Discharge instructions given to patient, Instructed on discharge instructions, follow up and referral plans. Demonstrated understanding of instructions, Pt was receptive of discharge instructions/ teaching. No special radiology studies were completed. Property sent home with patient. 16:24 Patient left the ED. jmb Signatures: Dispatcher Med[employer] EDMS Adela Sibley, Reg Reg gb Ronnell Dale, Reg Reg lg Declan Hawthorne, RN RN Christelle Mack,RN RN jo3 Khushi Pete, MEDIA LIAISON OFFICER MEDIA LIAISON OFFICER le Jj Acuña, DATA COLLECTION INTERVIEWER DATA COLLECTION INTERVIEWER dd6 Christelle Harris,Chris Dykes RN, RN RN Christy Coronado, DATA COLLECTION INTERVIEWER DATA COLLECTION INTERVIEWER f Gilberto, Omaira doshi Corrections: (The following items were deleted from the chart) 12:26 12:20 Home Meds: unk BP med; jo3 jo3 Chart Complete MTDD
--- NOTE | 2016-04-13 17:24 | EDDOCDS ---
Physician Documentation [facility] Name: Monae Tellez Age: 41 yrs Sex: Female : 1975 Arrival Date: 04/11/2016 Time: 11:59 Bed 15 Private MD: Nate Oneil OGME-1 Disposition: 04/11 16:08 Critical Care: Critical care not applicable. le Disposition: 04/11/16 16:05 Discharged to Home/Self Care. Impression: Chest pain, unspecified - Low probablility cardiac or pulmonary embolism. - Condition is Stable. - Discharge Instructions: Nonspecific Chest Pain, Pain Without a Known Cause. - Medication Reconciliation, Local Pharmacy Hours form. - Follow up: Nate Oneil; When: Call to arrange an appointment; Reason: Recheck today's complaints, Continuance of care. - Problem is new. - Symptoms have improved. - Notes: Return to the ED for any further concerns Historical: - Allergies: no known allergies; - Home Meds: 1. omeprazole 40 mg Oral cpDR 1 cap once daily 2. Flonase 50 mcg/actuation Nasal spsn 2 sprays once daily 3. amlodipine 5 mg Oral tab 1 tab once daily - PMHx: GERD; Hypertension; - PSHx: none; - Social history: Smoking status: Patient uses tobacco products, heavy tobacco smoker. No barriers to communication noted, The patient speaks fluent Pashto, Speaks appropriately for age. - Family history: Not pertinent. - : The pt / caregiver states he / she is not on anticoagulants. Home medication list is obtained from the patient. - Exposure Risk Screening:: None identified. 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 5 in. (165.10 cm) (R); 12:31 BP 145 / 89 (auto/); jo3 12:31 Pulse 78 MON; Pulse Ox 99% ; jo3 12:39 BP 135 / 71 (auto/); jo3 12:39 Pulse 74 MON; Pulse Ox 97% ; jo3 12:54 BP 133 / 68 (auto/); jo3 12:54 Pulse 70 MON; Pulse Ox 97% ; jo3 13:09 BP 136 / 72 (auto/); jo3 13:09 Pulse 70 MON; Pulse Ox 99% ; jo3 13:24 BP 132 / 71 (auto/); jo3 13:24 Pulse 66 MON; Pulse Ox 97% ; jo3 13:39 BP 123 / 66 (auto/); jo3 13:39 Pulse 66 MON; Pulse Ox 98% ; jo3 13:54 BP 127 / 62 (auto/); jo3 13:54 Pulse 68 MON; Pulse Ox 98% ; jo3 14:09 BP 119 / 60 (auto/); jo3 14:09 Pulse 68 MON; Pulse Ox 97% ; jo3 14:24 BP 141 / 92 (auto/); jo3 14:24 Pulse 66 MON; Pulse Ox 97% ; jo3 14:39 BP 148 / 84 (auto/); jo3 14:39 Pulse 90 MON; Pulse Ox 94% ; jo3 14:54 BP 136 / 62 (auto/); jmb 14:55 Pulse 64 MON; Pulse Ox 98% ; jmb 16:21 BP 139 / 62; Pulse 76; Resp 18; Temp 97.0(O); Pulse Ox 98% on R/A; Pain 0/10; jmb 12:00 Body Mass Index 26.63 (72.57 kg, 165.10 cm) dd6 MDM: 12:03 ECG WITH READING ER PHYS+CARDIAG ordered. EDMS 12:10 Aspirin Chewable Tablet 324 mg PO once ordered. le 12:10 Civil Rights Attorney/Pulse Ox/q 30 min VS ordered. le 12:10 IV Saline Lock ordered. le 12:10 Rhythm Strip to chart ordered. le 12:10 Undress patient appropriately for examination ordered. le 12:11 Basic Metabolic Profile Ordered. EDMS 12:11 CBC with Diff Ordered. EDMS 12:11 Cardiac Injury Profile Ordered. EDMS 12:11 D-Dimer Quant Ordered. EDMS 12:11 Troponin Ordered. EDMS 12:11 Chest, 2 View (pa\E\lat) Ordered. EDMS 12:34 CBC with Diff Reviewed. le 12:35 Spine, Cervical Ordered. EDMS 12:51 Financial registration complete. lg 12:51 [facility] Payment Agreement was scanned into MEDHOST and attached to record. lg 14:17 Basic Metabolic Profile Reviewed. le 14:17 D-Dimer Quant Reviewed. le 14:17 Cardiac Injury Profile Reviewed. le 14:17 Troponin Reviewed. le 14:17 EKG-ADULT Reviewed. le 14:17 Chest, 2 View (pa\E\lat) Reviewed. le 14:19 CT Chest Angio R/O PE Ordered. EDMS 14:21 Import Vital Signs into [employer] q30min please ordered. le 16:03 CT Chest Angio R/O PE Reviewed. le 04/12 08:44 T-Sheet-- Draft Copy was scanned into K[employer]ur and attached to record. [facility] 12:07 ECG/EKG was scanned into InstaclustrHOBMdr and attached to record. gb Administered Medications: 04/11 12:13 Drug: Aspirin 324 mg [aspirin 81 mg chewable tablet (4 tabs)] Route: PO; js13 Signatures: Dispatcher [employer] EDMS Adela Sibley, Reg Reg gb Ronnell Dale, Reg Reg Christelle Benavides,RN RN jo3 Khushi Pete, SPECIAL PROCEDURE TECHNOLOGIST Chris Ramsay,RN RN Omaira Hernandez Jennifer RN js13 The chart was reviewed and I authenticate all verbal orders and agree with the evaluation and treatment provided.Corrections: (The following items were deleted from the chart) 12:26 12:20 Home Meds: unk BP med; jo3 jo3 Attachments: 12:51 [facility] Payment Agreement 04/12 08:44 T-Sheet-- Draft Copy [facility] 12:07 ECG/EKG Chart Complete MTDD
--- NOTE | 2016-04-13 17:24 | EDDOCDS ---
Physician Documentation [facility] Name: Monae Tellez Age: 41 yrs Sex: Female : 1975 Arrival Date: 04/11/2016 Time: 11:59 Bed 15 Private MD: Nate Oneil [id number] Disposition: 04/11 16:08 Critical Care: Critical care not applicable. le Disposition: 04/11/16 16:05 Discharged to Home/Self Care. Impression: Chest pain, unspecified - Low probablility cardiac or pulmonary embolism. - Condition is Stable. - Discharge Instructions: Nonspecific Chest Pain, Pain Without a Known Cause. - Medication Reconciliation, Local Pharmacy Hours form. - Follow up: Nate Oneil; When: Call to arrange an appointment; Reason: Recheck today's complaints, Continuance of care. - Problem is new. - Symptoms have improved. - Notes: Return to the ED for any further concerns Historical: - Allergies: no known allergies; - Home Meds: 1. omeprazole 40 mg Oral cpDR 1 cap once daily 2. Flonase 50 mcg/actuation Nasal spsn 2 sprays once daily 3. amlodipine 5 mg Oral tab 1 tab once daily - PMHx: GERD; Hypertension; - PSHx: none; - Social history: Smoking status: Patient uses tobacco products, heavy tobacco smoker. No barriers to communication noted, The patient speaks fluent Polish, Speaks appropriately for age. - Family history: Not pertinent. - : The pt / caregiver states he / she is not on anticoagulants. Home medication list is obtained from the patient. - Exposure Risk Screening:: None identified. AUTHORIZATION COORDINATOR: 12:20 LMP 04/03/2016 jo3 Vital Signs: 12:00 BP 154 / 74; Pulse 122; Resp 18 S; Temp 97.4(O); Pulse Ox 100% on R/A; Weight 72.57 kg dd6 / 159.99 lbs (R); Height 5 ft. 5 in. (165.10 cm) (R); 12:31 BP 145 / 89 (auto/); jo3 12:31 Pulse 78 MON; Pulse Ox 99% ; jo3 12:39 BP 135 / 71 (auto/); jo3 12:39 Pulse 74 MON; Pulse Ox 97% ; jo3 12:54 BP 133 / 68 (auto/); jo3 12:54 Pulse 70 MON; Pulse Ox 97% ; jo3 13:09 BP 136 / 72 (auto/); jo3 13:09 Pulse 70 MON; Pulse Ox 99% ; jo3 13:24 BP 132 / 71 (auto/); jo3 13:24 Pulse 66 MON; Pulse Ox 97% ; jo3 13:39 BP 123 / 66 (auto/); jo3 13:39 Pulse 66 MON; Pulse Ox 98% ; jo3 13:54 BP 127 / 62 (auto/); jo3 13:54 Pulse 68 MON; Pulse Ox 98% ; jo3 14:09 BP 119 / 60 (auto/); jo3 14:09 Pulse 68 MON; Pulse Ox 97% ; jo3 14:24 BP 141 / 92 (auto/); jo3 14:24 Pulse 66 MON; Pulse Ox 97% ; jo3 14:39 BP 148 / 84 (auto/); jo3 14:39 Pulse 90 MON; Pulse Ox 94% ; jo3 14:54 BP 136 / 62 (auto/); jmb 14:55 Pulse 64 MON; Pulse Ox 98% ; jmb 16:21 BP 139 / 62; Pulse 76; Resp 18; Temp 97.0(O); Pulse Ox 98% on R/A; Pain 0/10; jmb 12:00 Body Mass Index 26.63 (72.57 kg, 165.10 cm) dd6 MDM: 12:03 ECG WITH READING ER PHYS+CARDIAG ordered. EDMS 12:10 Aspirin Chewable Tablet 324 mg PO once ordered. le 12:10 Termite Helper/Pulse Ox/q 30 min VS ordered. le 12:10 IV Saline Lock ordered. le 12:10 Rhythm Strip to chart ordered. le 12:10 Undress patient appropriately for examination ordered. le 12:11 Basic Metabolic Profile Ordered. EDMS 12:11 CBC with Diff Ordered. EDMS 12:11 Cardiac Injury Profile Ordered. EDMS 12:11 D-Dimer Quant Ordered. EDMS 12:11 Troponin Ordered. EDMS 12:11 Chest, 2 View (pa\E\lat) Ordered. EDMS 12:34 CBC with Diff Reviewed. le 12:35 Spine, Cervical Ordered. EDMS 12:51 Financial registration complete. lg 12:51 [facility] Payment Agreement was scanned into MED[employer] and attached to record. lg 14:17 Basic Metabolic Profile Reviewed. le 14:17 D-Dimer Quant Reviewed. le 14:17 Cardiac Injury Profile Reviewed. le 14:17 Troponin Reviewed. le 14:17 EKG-ADULT Reviewed. le 14:17 Chest, 2 View (pa\E\lat) Reviewed. le 14:19 CT Chest Angio R/O PE Ordered. EDMS 14:21 Import Vital Signs into [employer]ovo[employer] q30min please ordered. le 16:03 CT Chest Angio R/O PE Reviewed. le 04/12 08:44 T-Sheet-- Draft Copy was scanned into [employer] and attached to record. [facility] 12:07 ECG/EKG was scanned into [employer] and attached to record. gb Administered Medications: 04/11 12:13 Drug: Aspirin 324 mg [aspirin 81 mg chewable tablet (4 tabs)] Route: PO; [email or web address] Signatures: Dispatcher [employer] EDMS Adela Sibley, Reg Reg gb Ronnell Dale, Reg Reg Christelle Benavides,RN RN jo3 Khushi Pete, KILN WORKER Chris Ramsay,RN RN Omaira Hernandez Jennifer RN [email or web address] The chart was reviewed and I authenticate all verbal orders and agree with the evaluation and treatment provided.Corrections: (The following items were deleted from the chart) 12:26 12:20 Home Meds: unk BP med; jo3 jo3 Attachments: 12:51 [facility] Payment Agreement 04/12 08:44 T-Sheet-- Draft Copy [facility] 12:07 ECG/EKG Chart Complete MTDD
== END 2016-04-11 16:24 | disposition home or self-care (01) ==
LOC: M ED 11:59
DX: R07.9 Chest pain, unspecified (principal); I10 Essential (primary) hypertension; K21.9 Gastro-esophageal reflux disease without esophagitis; Z82.49 Family history of ischemic heart disease and other diseases of the circulatory system; F17.210 Nicotine dependence, cigarettes, uncomplicated; Z79.899 Other long term (current) drug therapy
CPT/HCPCS: 36415; 71020; 71275; 72052; 80048; 82550; 82553; 85025; 85379; 93005; 93041; 99284; Q9967

== ENCOUNTER → 2016-05-13 | Outpatient (CLI) | payer OTHER ==
--- NOTE | 2016-05-13 09:47 | REP ---
RIGHT UPPER QUADRANT ULTRASOUND: Real-time sonographic evaluation of the right upper quadrant performed. The gallbladder demonstrates no evidence of intraluminal sludge or calculi, wall thickening or pericholecystic fluid. There is no intrahepatic or extrahepatic biliary dilatation, common bile duct measuring 3 mm in diameter. Pancreas could not be seen due to overlying bowel gas. No liver mass is seen. Right kidney demonstrates no hydronephrosis or nephrolithiasis with normal size at 11.5 cm in length. IMPRESSION: Essentially negative right upper quadrant ultrasound. Signed by Brandon Means MD 05/13/2016 12:31 P
== END ==
LOC: M RAD 08:45
PROVIDERS: ATTEND Student in an Organized Health Care Education/Training Program
DX: R10.11 Right upper quadrant pain (principal)

== ENCOUNTER → 2016-05-16 | Outpatient (REF) | payer OTHER | LOC: M SFHCWAGY 13:48 | PROVIDERS: ATTEND Family Medicine | DX: Z12.4 Encounter for screening for malignant neoplasm of cervix (principal) | CPT/HCPCS: 87491; 87591; G0123 ==

== ENCOUNTER → 2016-06-05 | Outpatient (REF) | payer OTHER ==
[2016-06-05 17:52] LABS: AMYLASE 62 U/L (25-115)
[2016-06-06 08:02] LABS: CONTROL LINE HPYORI INT CTR LINE PRESENT
== END ==
LOC: M SFHCPLAZ 13:57
PROVIDERS: ATTEND Family Medicine
DX: R10.11 Right upper quadrant pain (principal)

== ENCOUNTER → 2017-12-18 | Outpatient (CLI) | payer OTHER | LOC: M WHC 13:27 | DX: Z12.31 Encounter for screening mammogram for malignant neoplasm of breast (principal); R92.8 Other abnormal and inconclusive findings on diagnostic imaging of breast | CPT/HCPCS: 77067 ==

== ENCOUNTER → 2018-01-04 | Outpatient (CLI) | payer OTHER | LOC: M RAD 09:15 | DX: Z03.89 Encounter for observation for other suspected diseases and conditions ruled out (principal) | CPT/HCPCS: 77065 ==

== ENCOUNTER → 2018-01-25 | Outpatient (CLI) | payer OTHER ==
[2018-01-25 13:23] LABS: BASO # 0.1 10^3/uL (0.0-0.2); BASO % 0.9 % (0.0-1.0); EOS # 0.4 10^3/uL (0.0-0.50); EOS % 4.2 % (0.0-3.0); HEMATOCRIT 39.5 % (36.0-47.0); HEMOGLOBIN 12.8 g/dl (12.0-15.5); IMMATURE GRANULOCYTE % 0.2 % (0-3.0); LYMPH # 2.2 10^3/uL (1.5-4.5); MEAN CORPUSCULAR HEMOGLOBIN 27.4 pg (27.0-33.0); MEAN CORPUSCULAR HGB CONC 32.4 g/dl (32.0-36.5); MEAN CORPUSCULAR VOLUME 84.4 fl (80.0-96.0); MONO % 9.4 % (0.0-5.0); NEUTROPHILS # 6.4 10^3/uL (1.8-7.7); NEUTROPHILS % 63.3 % (36.0-66.0); RED BLOOD COUNT 4.68 10^6/uL (4.00-5.40); RED CELL DISTRIBUTION WIDTH 16.8 % (11.5-14.5); WHITE BLOOD COUNT 10.2 10^3/uL (4.0-10.0)
[2018-01-25 13:25] LABS: ANION GAP 8 MEQ/L (8-16); BLOOD UREA NITROGEN 9 MG/DL (7-18); CALCIUM LEVEL 8.9 MG/DL (8.5-10.1); CARBON DIOXIDE LEVEL 26 MEQ/L (21-32); CHLORIDE LEVEL 102 MEQ/L (98-107); CREATININE FOR GFR 0.72 MG/DL (0.55-1.30); GLOMERULAR FILTRATION RATE > 60.0 (>58); GLUCOSE, FASTING 77 MG/DL (70-100); MAGNESIUM LEVEL 2.2 MG/DL (1.8-2.4); POTASSIUM SERUM 4.6 MEQ/L (3.5-5.1); SODIUM LEVEL 136 MEQ/L (136-145)
[2018-01-25 13:55] LABS: POS COUNT POS FLAG
== END ==
LOC: M WUC 10:38
DX: R42 Dizziness and giddiness (principal)

== ENCOUNTER → 2018-03-09 | Outpatient (CLI) | payer OTHER ==
[~2018-03-09] MED LIST: PROHANCE 279.3MG/ML 15ML VIAL (A9576) As Ordered; PROHANCE 279.3MG/ML 5ML VIAL (A9576) As Ordered
== END ==
LOC: M RAD 11:02
DX: I65.02 Occlusion and stenosis of left vertebral artery (principal)
CPT/HCPCS: A9576

== ENCOUNTER → 2018-03-11 | Outpatient (REF) | payer OTHER ==
[2018-03-11 17:21] LABS: FREE T4 1.04 NG/DL (0.76-1.46)
== END ==
LOC: M SFHCPLAZ 14:08
DX: R00.0 Tachycardia, unspecified (principal)
CPT/HCPCS: 84443

== ENCOUNTER → 2018-04-12 | Outpatient (CLI) | payer OTHER ==
[2018-04-12 16:55] LABS: ALBUMIN 3.5 GM/DL (3.2-5.2); ALT/SGPT 18 U/L (12-78); BILIRUBIN,TOTAL 0.3 MG/DL (0.2-1.0); BLOOD UREA NITROGEN 10 MG/DL (7-18); CALCIUM LEVEL 8.7 MG/DL (8.5-10.1); CARBON DIOXIDE LEVEL 23 MEQ/L (21-32); CHLORIDE LEVEL 104 MEQ/L (98-107); CREATININE FOR GFR 0.72 MG/DL (0.55-1.30); GLOMERULAR FILTRATION RATE > 60.0 (>58); GLUCOSE, FASTING 87 MG/DL (70-100); POTASSIUM SERUM 4.8 MEQ/L (3.5-5.1); RHEUMATOID FACTOR QUANT < 10.0 IU/ML (<15.0); SODIUM LEVEL 137 MEQ/L (136-145)
[2018-04-12 16:59] LABS: TOTAL 25(OH) VITAMIN D 11.7 NG/ML (30.0-100.0)
[2018-04-12 17:10] LABS: BASO # 0.1 10^3/uL (0.0-0.2); BASO % 1.3 % (0.0-1.0); EOS # 0.3 10^3/uL (0.0-0.50); EOS % 4.4 % (0.0-3.0); HEMATOCRIT 37.9 % (36.0-47.0); HEMOGLOBIN 11.8 g/dl (12.0-15.5); LYMPH # 1.6 10^3/uL (1.5-4.5); LYMPH % 21.2 % (24.0-44.0); MEAN CORPUSCULAR HEMOGLOBIN 26.7 pg (27.0-33.0); MEAN CORPUSCULAR HGB CONC 31.1 g/dl (32.0-36.5); MEAN CORPUSCULAR VOLUME 85.7 fl (80.0-96.0); MONO # 0.6 10^3/uL (0.0-0.8); MONO % 7.8 % (0.0-5.0); NEUTROPHILS # 4.9 10^3/uL (1.8-7.7); RED BLOOD COUNT 4.42 10^6/uL (4.00-5.40); WHITE BLOOD COUNT 7.5 10^3/uL (4.0-10.0)
[2018-04-12 18:14] LABS: ERYTHROCYTE SEDIMENTATION RATE 22 mm/hr (0-20)
[2018-04-14 10:17] LABS: ANTINUCLEAR ANTIBODIES DIRECT Negative (Negative)
== END ==
LOC: M LRY 12:57
PROVIDERS: ATTEND Psychiatry & Neurology Neurology
DX: R51 Headache (principal)

== ENCOUNTER → 2018-06-08 | Outpatient (CLI) | payer OTHER ==
[2018-06-08 21:31] LABS: TOTAL 25(OH) VITAMIN D 10.9 NG/ML (30.0-100.0)
[2018-06-10 15:52] LABS: ANGIOTENSIN 1 CONVERTING ENZYM 29 U/L (14-82)
[2018-06-11 00:10] LABS: Lyme Disease IgG/IgM Antibodie <0.91 ISR (0.00-0.90); Lyme Disease IgM Ab Quantitati <0.80 index (0.00-0.79)
[2018-06-16 10:45] LABS: DRVV SCREEN 41.3 SEC
== END ==
LOC: M LRY 12:59
PROVIDERS: ATTEND Psychiatry & Neurology Neurology
DX: R93.0 Abnormal findings on diagnostic imaging of skull and head, not elsewhere classified (principal)

== ENCOUNTER → 2018-08-11 | Outpatient (CLI) | payer OTHER ==
--- NOTE | 2018-08-22 23:58 | ECWPNPC ---
PATIENT NAME: ARA CLARK : 1975 GENDER: FEMALE VISIT DATE: 08/11/2018 DISCHARGE DATE: 08/11/18 1608 VISIT LOCKED DATE TIME: PHYSICIAN: CATALINA FLORES MD RESOURCE: CATALINA FLORES MD REASON FOR APPOINTMENT 1. NEUROLOGICAL SYMPTOMS HISTORY OF PRESENT ILLNESS PAIN SCREENING: PATIENT HAS A COMPLAINT OF ACUTE OR CHRONIC PAIN :YES 43 YEAR OLD FEMALE PATIENT WITH A HISTORY OF NEUROLOGICAL CHANGES. THE PATIENT WAS REFERRED TO US BY DR. PADGETT FOR A SPINAL TAP. PATIENT DENIES UNEXPLAINABLE WEIGHT LOSS, FEVER, CHILLS, NEW CHANGES ON HER URINARY OR BOWEL CONTROL. FALL RISK SCREENING: SCREENING :NO FALLS REPORTED IN THE LAST YEAR CURRENT MEDICATIONS TAKING FLUTICASONE PROPIONATE 50 MCG/ACT SUSPENSION 1 SPRAY IN EACH NOSTRIL NASALLY BID TAKING [place]ARTAN POTASSIUM 25 MG TABLET 1 TABLET ORALLY ONCE A DAY TAKING OMEPRAZOLE 20 MG CAPSULE DELAYED RELEASE 2 CAPSULES ORALLY TWICE DAILY NOT-TAKING RANITIDINE HCL 150 MG CAPSULE 1 CAPSULE AT BEDTIME ORALLY ONCE A DAY NOT-TAKING FLUTICASONE PROPIONATE 50 MCG/ACT SUSPENSION 1 SPRAY IN EACH NOSTRIL NASALLY BID, NOTES: DUPLICATE NOT-TAKING TRIAMCINOLONE ACETONIDE 0.025 % CREAM 1 APPLICATION TO AFFECTED AREA EXTERNALLY TWICE A DAY NOT-TAKING GOODSENSE NICOTINE 4 MG GUM 1 PIECE NEEDED MOUTH/THROAT Q1-2 HOURS X 6 WEEKS, THEN [id number], THEN [id number] WEEKS. START ON CIGARETTE QUIT DAY NOT-TAKING CYCLOBENZAPRINE HCL 5 MG TABLET 1 TABLET ORALLY BID PRN AT BEDDTIME. PLEASE NO DRIVING UNDER INFLUENCE OF MEDICATION. NOT-TAKING ASPIRIN 81 MG TABLET 1 TABLET ORALLY ONCE A DAY MEDICATION LIST REVIEWED AND RECONCILED WITH THE PATIENT PAST MEDICAL HISTORY HTN GERD VERTEBRAL ARTERY STENOSIS, LEFT TOBACCO USE DISORDER BILATERAL OTOSCLEROSIS TINNITUS, LEFT HX OF RINGWORM OF BODY HX OF LABYRHINTHITIS HX OF ATYPICAL CHEST PAIN HX OF BICIPTAL TENDONITIS OF L SHOULDER HX OF L SUPRASPINATUS TENDONITIS ALLERGIES N.K.D.A. SURGICAL HISTORY DENIES SURGERY FAMILY HISTORY FATHER: , DIAGNOSED WITH DIABETES, CANCER MOTHER: , PSYCHIATRIC CONDITIONS, DIABETES SIBLINGS: ALIVE, DIABETES 1 SISTER(S) . FATHER - COLON CANCER WITH METS TO ESOPHAGUS, MIMOTHER - DM2, MENTAL HEALTHSISTER (OLDER) - DM2. SOCIAL HISTORY GENERAL: TOBACCO USE ARE YOU A:CURRENT SMOKER ARE YOU INTERESTED IN QUITTING?NOT READY TO QUIT PT HAS NICORRETT GUM BUT HAS NOT USED YET. COUNSELED THE PATIENT ON SMOKING EFFECTS, EDUCATION [id number]/15/2019 HOW MANY CIGARETTES A DAY DO YOU SMOKE?11-20 HOW SOON AFTER YOU WAKE UP DO YOU SMOKE YOUR FIRST CIGARETTE?6-30 MIN HOW OFTEN DO YOU SMOKE CIGARETTES?EVERY DAY PATIENT COUNSELED ON THE DANGERS OF TOBACCO USE AND URGED TO QUIT:08/11/2018 SMOKING CESSATION INFORMATION GIVEN03/16/2018 HIV / HEP-C SCREENING HIV TEST OFFERED TO PATIENT:YES DATE OFFERED:06/16/2016 TEST ACCEPTED:NO REASON:PATIENT DECLINED OTHERS AT HOME: SPOUSE. HOUSING: [facility]. EDUCATION BACHELOR'S IN ACCOUNTING. DIET: REGULAR. LANGUAGE LANGUAGES SPOKEN:[place]ORE[place] DOMESTIC VIOLENCE NONE. BMI CARE GOAL FOLLOW-UP ABOVE NORMAL BMI FOLLOW-UPEXERCISE PROMOTION: STRETCHING RECREATIONAL DRUG USE DENIES. EXERCISE: NO REGULAR EXERCISE. LEARNING BARRIERS / SPECIAL NEEDS CHANGE FROM LAST VISIT?NO BARRIERS TO LEARNING?NO HEARING IMPAIRED?NO VISION IMPAIRED?NO COGNITIVELY IMPAIRED?NO READINESS TO LEARN?YES LEARNING PREFERENCES?NO LEARNING CAPABILITIES PRESENT?YES EMOTIONAL BARRIERS?NO SPECIAL DEVICES?NO FINANCE SPECIALIST NEEDED?NO PAIN CLINIC PFS, CLERGY, PUBLIC HEALTH REFERRALS HAS THE PATIENT BEEN EDUCATED REGARDING HIS/HER PLAN OF CARE?YES HAS THE PATIENT BEEN EDUCATED REGARDING PAIN, THE RISK FOR PAIN, THE IMPORTANCE OF EFFECTIVE PAIN MANAGEMENT, AND THE PAIN ASSESSMENT PROCESS?YES LATEX QUESTIONNAIRE LATEX ALLERGY : HAVE YOU EVER DEVELOPED ANY TYPE OF REACTION AFTER HANDLING LATEX PRODUCTS SUCH RUBBER GLOVES, CONDOMS, DIAPHRAGMS, BALLOONS, SOCKS, OR UNDERWEAR?NO LATEX ALLERGY : HAVE YOU EVER DEVELOPED ANY TYPE OF REACTION DURING OR AFTER DENTAL APPOINTMENT, VAGINAL/RECTAL EXAMINATION, SURGICAL PROCEDURE, OR ANY OTHER EXPOSURE?NO LATEX RISK : HAVE YOU EVER HAD ANY DIFFICULTY BREATHING OR HIVES AFTER EATING OR HANDLING ANY FRUITS, OR VEGETABLES; SUCH KIWI, BANANAS, STONE FRUITS, OR CHESTNUTSNO LATEX RISK : DO YOU HAVE A PREVIOUS PERSONAL HISTORY OF MORE THAN NINE SURGERIES, SPINA BIFIDA, OR REPEATED CATHERTIZATIONS? NO LATEX RISK : ARE YOU FREQUENTLY EXPOSED TO LATEX PRODUCTS IN YOUR OCCUPATION?NO DATE ASKED : 08/11/2018 CAFFEINE CAFFEINE USE?NO ADVANCE DIRECTIVE ADVANCE DIRECTIVE DISCUSSED WITH PATIENT:YES PT HAS LIVING WILL, NO HEALTH CARE PROXY. PT DENIES OFFER OF ASSISTANCE OR INFORMATION AT THIS TIME EVANGELICAL [id number] NONE MARITAL STATUS: , . ALCOHOL SCREENING POINTS: 6, INTERPRETATION: POSITIVE. 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 SEXUAL HX HAD SEX IN THE LAST 12 MONTHS (VAGINAL, ORAL, OR ANAL)?: YES, WITH: MEN ONLY, USE PROTECTION?: NO, PREVENTION STRATEGIES DISCUSSED:: OTHER, HAVE YOU EVER HAD AN STD?: NO, LMP:: 05/17/14. REVIEWED WITH PT 08/11/18 1535 LAS. HOSPITALIZATION/MAJOR DIAGNOSTIC PROCEDURE DENIES REVIEW OF SYSTEMS REVIEWED BY: PROVIDER: CATALINA FLORES MD . CONSTITUTIONAL: ANY CHANGE IN YOUR MEDICAL CONDITION? NO . CHILLS NO . FEVER NO . INFECTION: DO YOU HAVE NEW INFECTIONS? NO . DO YOU HAVE HISTORY OF MRSA? NO . MUSCULOSKELETAL: ANY NEW PATTERNS OF PAIN OR NUMBNESS? NO . SYTEMIC LUPUS NO . GASTROENTEROLOGY: ANY NEW CHANGE IN BOWEL CONTROL? NO . BARRETTS ESOPHAGUS NO . CIRRHOSIS NO . HEPATITIS NO . LIVER FAILURE NO . ACID REFLUX NO . UNEXPLAINED WEIGHT LOSS NO . GENITOURINARY: ANY NEW CHANGE IN BLADDER CONTROL? NO . IS THERE A CHANCE YOU COULD BE ? NO . HEMATOLOGY/LYMPH: DO YOU TAKE ANY BLOOD THINNERS? (FOR EXAMPLE- COUMADIN, PLAVIX, AGGRENOX, PLATEL, PRADAXA, OR XARELTO) NO . WHEN WAS YOUR LAST DOSE? DATE: TIME: . LOW PLATELET COUNT NO . SICKLE CELL DISEASE NO . VON WILLIEBRANDS NO . FACTOR V LEIDEN NO . THALLASEMIA NO . ANEMIA NO . EASY BRUISING NO . NEUROLOGY: HAVE YOU FALLEN IN THE PAST 12 MONTHS? NO . ANY NEW EXTREMITY NUMBNESS OR WEAKNESS? NO . HEAD INJURY NO . DEMENTIA NO . CEREBRAL PALSY NO . MULTIPLE SCLEROSIS NO . DIZZINESS PT REPORTS FEELING OF DIZZINESS/LIGHTHEADEDNESS WORKED UP BY DR. PADGETT . HEADACHE NO . STROKES NO . VERTIGO SENSATION OF IMBALANCE HISTORY OF VERTIGO 2014 . CARDIOLOGY: DO YOU HAVE A PACEMAKER OR DEFIBRILLATOR? NO . ANGINA NO . HEART ATTACK NO . HEART SURGERY NO . CONGESTIVE HEART FAILURE/FLUID OVERLOAD NO . CHEST PAIN NO . HIGH BLOOD PRESSURE NO . IRREGULAR HEART BEAT NO . RESPIRATORY: HAVE YOU BEEN SICK IN THE PAST WEEK? NO . FEVER NO . FLU LIKE SYMPTOMS? NO . CPAP NO . BYPAP NO . ASTHMA NO . EMPHYSEMA NO . CHRONIC LUNG DISEASES NO . SHORTNESS OF BREATH ON EXERTION NO . COUGH NO . SNORING NO . INTEGUMENTARY: DO YOU HAVE ANY RASHES OR OPEN SORES? NO . ALLERGIC/IMMUNO: ARE YOU ALLERGIC TO IV DYE? NO . ANY NEW ALLERGIES? NO . PSYCHIATRIC: DO YOU HAVE THOUGHTS OF HURTING YOURSELF OR SOMEONE ELSE? NO . ARE YOU ABUSED, NEGLECTED, OR IN AN UNSAFE ENVIRONMENT? NO . ENDOCRINOLOGY: ARE YOU DIABETIC? NO . THYROID DISORDER NO . OTHER: DO YOU NEED ANY PRESCRIPTIONS? NO . IF YES, PLEASE LIST: ____ . ANY NEW PROBLEMS WITH YOUR MEDICATIONS? NO . WHEN DID YOU LAST EAT? ____ . WHEN DID YOU LAST DRINK? ____ . WHAT DID YOU LAST DRINK? ____ . NAME OF PERSON DRIVING YOU HOME? ____ . DO YOU HAVE ANY OTHER QUESTIONS OR CONCERNS NO . VITAL SIGNS WT 159.6 LBS, HT 65 IN, BMI 26.56 INDEX, BP 135/75 MM HG, HR 75 /MIN, RR 18 /MIN, TEMP 99.0 F, OXYGEN SAT % 98%, NA INITIALS SC 14:59. EXAMINATION GENERAL EXAMINATION: PATIENT IS ALERT O X 3 AND COOPERATIVE. LUNGS CLEAR, TO AUSCULTATION. HEART: NO MURMURS OR GALLOPS; FACIAL CRANIAL NERVES ARE GROSSLY NORMAL. GOOD SYMMETRY OF FACIAL MUSCLE MOVEMENT. NORMAL VISUAL ALCOCER. LEFT LEG WEAKER AT EXTENSION AND FLEXION. ASSESSMENTS NEUROLOGICAL SYMPTOMS - R29.90 (PRIMARY) MS PROTOCOL. TREATMENT NEUROLOGICAL SYMPTOMS CLINICAL NOTES: WE DISCUSSED SEVERAL ISSUES WITH MRS. CLARK'S CASE. THE PATIENT WILL COME IN FOR A SPINAL TAP IN A FEW WEEKS. WE DISCUSSED THE BENEFITS AND RISKS OF THE PROCEDURE AND THE PATIENT WOULD LIKE TO PROCEED. INSTRUCTIONS WERE GIVEN, QUESTIONS WERE ANSWERED, PATIENT REPORTS UNDERSTANDING AND AGREES WITH THE PLAN. I, SEEMA HICKEY, DOCUMENTED THE ABOVE INFORMATION ACTING A SCRIBE FOR DR. FLORES. I HAVE REVIEWED THE ABOVE DOCUMENT, WRITTEN BY SEEMA YANG AND I VERIFY THAT IT IS ACCURATE. . PROCEDURE CODES G8427 CURRENT MEDS W/DOSAGES DOCUMENTED G8730 PAIN ASSESS POS TOOL F/U PLAN DOC FA211 ESTABILISHED PATIENT [facility] FACILITY CHARGE DISPOSITION & COMMUNICATION FOLLOW UP 3 WEEKS ELECTRONICALLY SIGNED BY CATALINA FLORES MD, MD ON 08/22/2018 AT 07:00 AM EDT DISCLAIMER : THIS IS A VISIT SUMMARY EXTRACTED FROM THE [employer] CHART. IT IS NOT A COPY OF THE [employer] PROGRESS NOTE. MIGUEL
== END ==
LOC: M PAIN 14:15
PROVIDERS: ATTEND Anesthesiology
DX: R29.90 Unspecified symptoms and signs involving the nervous system (principal); I10 Essential (primary) hypertension; K21.9 Gastro-esophageal reflux disease without esophagitis; F17.210 Nicotine dependence, cigarettes, uncomplicated; Z79.899 Other long term (current) drug therapy; Z86.79 Personal history of other diseases of the circulatory system

== ENCOUNTER → 2018-09-01 | Outpatient (CLI) | payer OTHER ==
[~2018-09-01] MED LIST changes: +LIDOCAINE 1% SDV INJ 30 ML VIAL As Ordered ONE; +MIDAZOLAM INJ 2 MG/2 ML VIAL (J2250) As Ordered ONE; -PROHANCE 279.3MG/ML 15ML VIAL (A9576) As Ordered; -PROHANCE 279.3MG/ML 5ML VIAL (A9576) As Ordered; +fentaNYL 100 MCG/2 ML INJECTION (J3010) As Ordered ONE
[2018-09-01 15:32] LABS: APPEARANCE, CSF CLEAR (CLEAR); COLOR, CSF COLORLESS (COLORLESS); CSF TUBE# CELL CNT TUBE 2
[2018-09-01 15:33] LABS: CSF TUBE# GLU TUBE 1; CSF TUBE# TP TUBE 1; GLUCOSE CSF 37 MG/DL (40-75); TOTAL PROTEIN,CSF 45 MG/DL (15-45)
--- NOTE | 2018-09-04 01:53 | ECWPNPC ---
PATIENT NAME: ARA CLARK : 1975 GENDER: FEMALE VISIT DATE: 09/01/2018 DISCHARGE DATE: 09/01/18 1452 VISIT LOCKED DATE TIME: PHYSICIAN: CATALINA FLORES MD RESOURCE: CATALINA FLORES MD REASON FOR APPOINTMENT 1. SPINAL TAP HISTORY OF PRESENT ILLNESS HISTORY OF PRESENT ILLNESS: PAIN THE PATIENT DESCRIBES THE PAIN... FALL RISK SCREENING: SCREENING :NO FALLS REPORTED IN THE LAST YEAR CURRENT MEDICATIONS TAKING FLUTICASONE PROPIONATE 50 MCG/ACT SUSPENSION 1 SPRAY IN EACH NOSTRIL NASALLY BID, NOTES: WEEKS AGO TAKING OMEPRAZOLE 20 MG CAPSULE DELAYED RELEASE 2 CAPSULES ORALLY TWICE DAILY, NOTES: 1044 TAKING LOSARTAN POTASSIUM 25 MG TABLET 1 TABLET ORALLY ONCE A DAY, NOTES: 104 NOT-TAKING OMEPRAZOLE 20 MG CAPSULE DELAYED RELEASE TAKE 2 CAPSULES BY MOUTH TWICE A DAY , NOTES: DUPLICATE NOT-TAKING RANITIDINE HCL 150 MG CAPSULE 1 CAPSULE AT BEDTIME ORALLY ONCE A DAY NOT-TAKING FLUTICASONE PROPIONATE 50 MCG/ACT SUSPENSION 1 SPRAY IN EACH NOSTRIL NASALLY BID, NOTES: DUPLICATE NOT-TAKING TRIAMCINOLONE ACETONIDE 0.025 % CREAM 1 APPLICATION TO AFFECTED AREA EXTERNALLY TWICE A DAY NOT-TAKING GOODSENSE NICOTINE 4 MG GUM 1 PIECE NEEDED MOUTH/THROAT Q1-2 HOURS X 6 WEEKS, THEN [id number], THEN [id number] WEEKS. START ON CIGARETTE QUIT DAY NOT-TAKING CYCLOBENZAPRINE HCL 5 MG TABLET 1 TABLET ORALLY BID PRN AT BEDDTIME. PLEASE NO DRIVING UNDER INFLUENCE OF MEDICATION. NOT-TAKING ASPIRIN 81 MG TABLET 1 TABLET ORALLY ONCE A DAY MEDICATION LIST REVIEWED AND RECONCILED WITH THE PATIENT PAST MEDICAL HISTORY HTN GERD VERTEBRAL ARTERY STENOSIS, LEFT TOBACCO USE DISORDER BILATERAL OTOSCLEROSIS TINNITUS, LEFT HX OF RINGWORM OF BODY HX OF LABYRHINTHITIS HX OF ATYPICAL CHEST PAIN HX OF BICIPTAL TENDONITIS OF L SHOULDER HX OF L SUPRASPINATUS TENDONITIS ALLERGIES N.K.D.A. SURGICAL HISTORY DENIES SURGERY FAMILY HISTORY FATHER: , DIAGNOSED WITH DIABETES, CANCER MOTHER: , DIABETES, PSYCHIATRIC CONDITIONS SIBLINGS: ALIVE, DIABETES 1 SISTER(S) . FATHER - COLON CANCER WITH METS TO ESOPHAGUS, MIMOTHER - DM2, MENTAL HEALTHSISTER (OLDER) - DM2. SOCIAL HISTORY GENERAL: TOBACCO USE ARE YOU A:CURRENT SMOKER ARE YOU INTERESTED IN QUITTING?THINKING ABOUT QUITTING PT HAS NICORRETT GUM BUT HAS NOT USED YET. HOW MANY CIGARETTES A DAY DO YOU SMOKE?11-20 HOW SOON AFTER YOU WAKE UP DO YOU SMOKE YOUR FIRST CIGARETTE?6-30 MIN HOW OFTEN DO YOU SMOKE CIGARETTES?EVERY DAY PATIENT COUNSELED ON THE DANGERS OF TOBACCO USE AND URGED TO QUIT:09/01/2018 SMOKING CESSATION INFORMATION GIVEN03/16/2018 HIV / HEP-C SCREENING HIV TEST OFFERED TO PATIENT:YES DATE OFFERED:06/16/2016 TEST ACCEPTED:NO REASON:PATIENT DECLINED OTHERS AT HOME: SPOUSE. HOUSING: [facility]. EDUCATION BACHELOR'S IN ACCOUNTING. DIET: REGULAR. LANGUAGE LANGUAGES SPOKEN:[place] DOMESTIC VIOLENCE NONE. BMI CARE GOAL FOLLOW-UP ABOVE NORMAL BMI FOLLOW-UPEXERCISE PROMOTION: STRETCHING RECREATIONAL DRUG USE DENIES. EXERCISE: NO REGULAR EXERCISE. LEARNING BARRIERS / SPECIAL NEEDS CHANGE FROM LAST VISIT?NO BARRIERS TO LEARNING?NO HEARING IMPAIRED?NO VISION IMPAIRED?NO COGNITIVELY IMPAIRED?NO READINESS TO LEARN?YES LEARNING PREFERENCES?NO LEARNING CAPABILITIES PRESENT?YES EMOTIONAL BARRIERS?NO SPECIAL DEVICES?NO MAINTENANCE WORKER NEEDED?NO PAIN CLINIC PFS, CLERGY, PUBLIC HEALTH REFERRALS HAS THE PATIENT BEEN EDUCATED REGARDING HIS/HER PLAN OF CARE?YES HAS THE PATIENT BEEN EDUCATED REGARDING PAIN, THE RISK FOR PAIN, THE IMPORTANCE OF EFFECTIVE PAIN MANAGEMENT, AND THE PAIN ASSESSMENT PROCESS?YES LATEX QUESTIONNAIRE LATEX ALLERGY : HAVE YOU EVER DEVELOPED ANY TYPE OF REACTION AFTER HANDLING LATEX PRODUCTS SUCH RUBBER GLOVES, CONDOMS, DIAPHRAGMS, BALLOONS, SOCKS, OR UNDERWEAR?NO LATEX ALLERGY : HAVE YOU EVER DEVELOPED ANY TYPE OF REACTION DURING OR AFTER DENTAL APPOINTMENT, VAGINAL/RECTAL EXAMINATION, SURGICAL PROCEDURE, OR ANY OTHER EXPOSURE?NO LATEX RISK : HAVE YOU EVER HAD ANY DIFFICULTY BREATHING OR HIVES AFTER EATING OR HANDLING ANY FRUITS, OR VEGETABLES; SUCH KIWI, BANANAS, STONE FRUITS, OR CHESTNUTSNO LATEX RISK : DO YOU HAVE A PREVIOUS PERSONAL HISTORY OF MORE THAN NINE SURGERIES, SPINA BIFIDA, OR REPEATED CATHERTIZATIONS? NO LATEX RISK : ARE YOU FREQUENTLY EXPOSED TO LATEX PRODUCTS IN YOUR OCCUPATION?NO DATE ASKED : 08/11/2018 CAFFEINE CAFFEINE USE?NO ADVANCE DIRECTIVE ADVANCE DIRECTIVE DISCUSSED WITH PATIENT:YES PT HAS LIVING WILL, NO HEALTH CARE PROXY. PT DENIES OFFER OF ASSISTANCE OR INFORMATION AT THIS TIME. LUTHERAN [id number] NONE MARITAL STATUS: , . ALCOHOL SCREENING POINTS: 6, INTERPRETATION: POSITIVE. 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 SEXUAL HX HAD SEX IN THE LAST 12 MONTHS (VAGINAL, ORAL, OR ANAL)?: YES, WITH: MEN ONLY, USE PROTECTION?: NO, PREVENTION STRATEGIES DISCUSSED:: OTHER, HAVE YOU EVER HAD AN STD?: NO, LMP:: 05/17/14. REVIEWED WITH PT 08/11/18 7745 LASREVIEWED WITH PATIENT 09/01/18 1317 JS. HOSPITALIZATION/MAJOR DIAGNOSTIC PROCEDURE DENIES REVIEW OF SYSTEMS REVIEWED BY: PROVIDER: . CONSTITUTIONAL: ANY CHANGE IN YOUR MEDICAL CONDITION? NO . CHILLS NO . FEVER NO . INFECTION: DO YOU HAVE NEW INFECTIONS? NO . DO YOU HAVE HISTORY OF MRSA? NO . MUSCULOSKELETAL: ANY NEW PATTERNS OF PAIN OR NUMBNESS? NO . GASTROENTEROLOGY: ANY NEW CHANGE IN BOWEL CONTROL? NO . GENITOURINARY: ANY NEW CHANGE IN BLADDER CONTROL? NO . IS THERE A CHANCE YOU COULD BE ? NO . HEMATOLOGY/LYMPH: DO YOU TAKE ANY BLOOD THINNERS? (FOR EXAMPLE- COUMADIN, PLAVIX, AGGRENOX, PLATEL, PRADAXA, OR XARELTO) NO . WHEN WAS YOUR LAST DOSE? DATE: TIME: . NEUROLOGY: HAVE YOU FALLEN IN THE PAST 12 MONTHS? NO . ANY NEW EXTREMITY NUMBNESS OR WEAKNESS? NO . CARDIOLOGY: DO YOU HAVE A PACEMAKER OR DEFIBRILLATOR? NO . RESPIRATORY: HAVE YOU BEEN SICK IN THE PAST WEEK? NO . FEVER NO . FLU LIKE SYMPTOMS? NO . COUGH NO . INTEGUMENTARY: DO YOU HAVE ANY RASHES OR OPEN SORES? NO . ALLERGIC/IMMUNO: ARE YOU ALLERGIC TO IV DYE? NO . ANY NEW ALLERGIES? NO . PSYCHIATRIC: DO YOU HAVE THOUGHTS OF HURTING YOURSELF OR SOMEONE ELSE? NO . ARE YOU ABUSED, NEGLECTED, OR IN AN UNSAFE ENVIRONMENT? NO . ENDOCRINOLOGY: ARE YOU DIABETIC? NO . OTHER: DO YOU NEED ANY PRESCRIPTIONS? NO . IF YES, PLEASE LIST: ____ . ANY NEW PROBLEMS WITH YOUR MEDICATIONS? NO . WHEN DID YOU LAST EAT? ____08/31/18 1400 . WHEN DID YOU LAST DRINK? ____09/01/18 1100 . WHAT DID YOU LAST DRINK? ____WATER . NAME OF PERSON DRIVING YOU HOME? ____MARK . DO YOU HAVE ANY OTHER QUESTIONS OR CONCERNS NO . VITAL SIGNS WT 157.6 LBS, HT 65 IN, BMI 26.22 INDEX, BP 150/67 MM HG, HR 96 /MIN, RR 18 /MIN, TEMP 97.9 F, OXYGEN SAT % 98, SAFE IN ENV? (Y/N) YES, NA INITIALS MP 1310, REVIEWED BY: JS. ASSESSMENTS ENCOUNTER FOR LUMBAR PUNCTURE - Z01.89 (PRIMARY) MS PROTOCOL. TREATMENT ENCOUNTER FOR LUMBAR PUNCTURE CLINICAL NOTES: SPINAL TAP WITH IV SEDATION- PLEASE SEE MEDITECH. PROCEDURE CODES 62091 SPINAL FLUID TAP DIAGNOSTIC 17870 MOD SED SAME PHYS/QHP 5/>YRS 80738 MOD SED SAME PHYS/QHP EA DISPOSITION & COMMUNICATION FOLLOW UP F/UP WITH NEUROLOGIST ELECTRONICALLY SIGNED BY CATALINA FLORES MD, MD ON 09/03/2018 AT 05:15 PM EDT DISCLAIMER : THIS IS A VISIT SUMMARY EXTRACTED FROM THE [employer] CHART. IT IS NOT A COPY OF THE [employer] PROGRESS NOTE. MTDD
== END ==
LOC: M PAIN 13:00
PROVIDERS: ATTEND Anesthesiology
DX: Z01.89 Encounter for other specified special examinations (principal); I10 Essential (primary) hypertension; K21.9 Gastro-esophageal reflux disease without esophagitis; F17.210 Nicotine dependence, cigarettes, uncomplicated; H80.93 Unspecified otosclerosis, bilateral; H93.12 Tinnitus, left ear; I67.2 Cerebral atherosclerosis; Z79.899 Other long term (current) drug therapy
CPT/HCPCS: 36415; 62270; 82784; 82945; 83916; 84157; 87070; 87102; 87205; 87252; 87483; 88108; 88313; 89050; 99152; 99153; J2250; J3010